=== PATIENT | female | born 1995 | race American Indian/Alaskan Native ===

== ENCOUNTER 2018-04-05 19:29 | Emergency (ER) | payer SELFPAY ==
[2018-04-05 19:43] VITALS: BP 114/65
== END 2018-04-05 20:15 | disposition left against medical advice (07) ==
LOC: ED 19:29
DX: R10.9 Unspecified abdominal pain (principal); Z53.21 Procedure and treatment not carried out due to patient leaving prior to being seen by health care provider

== ENCOUNTER 2021-12-27 00:26 | Emergency (ER) | payer SELFPAY ==
[2021-12-27 00:36] VITALS: BP 146/59
== END 2021-12-27 12:00 | disposition left against medical advice (07) ==
LOC: ED 00:26
DX: R42 Dizziness and giddiness (principal); Z53.21 Procedure and treatment not carried out due to patient leaving prior to being seen by health care provider

== ENCOUNTER 2022-05-07 00:07 | Emergency (ER) | payer SELFPAY ==
[2022-05-07 00:31] VITALS: BP 107/62
[2022-05-07 03:03] LABS: Mean Corpuscular HGB Conc 28 % (30-34); Platelet Count 682 K/mm3 (140-440); Red Blood Count 4.07 M/mm3 (3.65-5.03)
[2022-05-07 03:04] LABS: Hematocrit 27.2 % (30.3-42.9); Hemoglobin 7.7 gm/dl (10.1-14.3); Mean Corpuscular Volume 67 fl (79-97); Red Cell Distribution Width 24.1 % (13.2-15.2)
[2022-05-07 03:56] LABS: Anisocytosis 2+; Basophils % (Manual) 0 % (0.0-1.8); Eosinophils % (Manual) 0 % (0.0-4.3); Hypochromasia 3+; Ovalocytes Few; Platelet Estimate Consistent w Auto; Total Cells Counted 100
[2022-05-07 09:34] LABS: Alanine Aminotransferase 22 units/L (7-56); Albumin 4.5 g/dL (3.9-5); Blood Urea Nitrogen 5 mg/dL (7-17); Calcium 9.1 mg/dL (8.4-10.2); Hemolysis Index 7
[2022-05-07 09:44] LABS: BUN/Creatinine Ratio 8
== END 2022-05-07 01:30 | disposition left against medical advice (07) ==
LOC: ED 00:07
DX: R10.9 Unspecified abdominal pain (principal); Z53.21 Procedure and treatment not carried out due to patient leaving prior to being seen by health care provider
CPT/HCPCS: 36415; 80053; 83690; 84702; 85007; 85025